=== PATIENT | male | born 1970 | race Two or more races ===

== ENCOUNTER 2016-12-19 22:11 | Emergency (ER) | payer SELFPAY ==
[~2016-12-19] VITALS: Ht 175.3 cm; Wt 65.8 kg
[2016-12-19 22:20] VITALS: BP 126/72
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
== END 2016-12-19 22:47 | disposition left against medical advice (07) ==
LOC: ER 22:11
DX: M54.2 Cervicalgia (principal); M54.6 Pain in thoracic spine; R20.0 Anesthesia of skin; R20.2 Paresthesia of skin
CPT/HCPCS: 99284